=== PATIENT | female | born 1985 ===

== ENCOUNTER 2021-01-24 07:40 | Inpatient (IN) | payer OTHER ==
[~2021-01-24] VITALS: Ht 175.3 cm; Wt 99.8 kg
[~2021-01-24 07:40] MED LIST: ALDOMET500 MG PO; ASA81 MG PO; PNEU16DI2; PRENATAL + DHA1 EAC1 PO
== END 2021-01-26 18:30 | disposition home or self-care (01) | DRG 806 ==
LOC: LDR 07:40 → OB/GYN 13:23
PROVIDERS: ADMIT Obstetrics & Gynecology; ATTEND Obstetrics & Gynecology
PROC: 10E0XZZ Delivery of Products of Conception, External Approach (ICD-10-PCS; principal; 2021-01-24)
PROC: 0HQ9XZZ Repair Perineum Skin, External Approach (ICD-10-PCS; 2021-01-24)
PROC: 4A1HXFZ Monitoring of Products of Conception, Cardiac Rhythm, External Approach (ICD-10-PCS; 2021-01-24)
PROC: 10907ZC Drainage of Amniotic Fluid, Therapeutic from Products of Conception, Via Natural or Artificial Opening (ICD-10-PCS; 2021-01-24)
DX: O60.14X0 Preterm labor third trimester with preterm delivery third trimester, not applicable or unspecified (principal); O10.02 Pre-existing essential hypertension complicating childbirth; O70.0 First degree perineal laceration during delivery; Z37.0 Single live birth; Z3A.36 36 weeks gestation of pregnancy; Z20.822 Contact with and (suspected) exposure to COVID-19